=== PATIENT | female | born 1985 | race Caucasian/White ===

== ENCOUNTER 2018-06-11 16:42 | Emergency (ER) | payer MEDICAID ==
[~2018-06-11] VITALS: Ht 152.4 cm; Wt 88.1 kg
[2018-06-11] MEDS ORDERED: GABA600T7 PO (16:56)
[2018-06-11] MEDS ORDERED: DULO30CA2 PO (16:56)
[2018-06-11] MEDS ORDERED: CYCL-259 PO (16:56)
[2018-06-11] MEDS ORDERED: HYDR-3307 PO (16:56)
--- NOTE | 2018-06-11 17:00 | NUR ---
TASK RN: First contact with pt. Pt c/o, "insect bite on my left upper shoulder that I have had for a week. I have been cleaning it and keeping it covered, but it looks worse. I was going to go to my doctors today but my Jeep broke down." [place]. Pt presents to ED with open wound on left upper shoulder that is covered with quze and bandages. Wound has mild redness around edge, is moist, and has white slough in center.
[2018-06-11 17:28] VITALS: BP 131/89
== END 2018-06-11 17:31 | disposition home or self-care (01) ==
LOC: ED 17:20
DX: L03.114 Cellulitis of left upper limb (principal); Z87.891 Personal history of nicotine dependence
CPT/HCPCS: 99283

== ENCOUNTER 2020-03-06 16:25 | Emergency (ER) | payer MEDICAID ==
[~2020-03-06] VITALS: Ht 154.9 cm; Wt 86.6 kg
[~2020-03-06 16:25] MED LIST: CYCL-259 PO; DULO30CA2 PO; GABA600T7 PO; HYDR-3246 PO
--- NOTE | 2020-03-06 16:55 | NUR ---
REPORT RECEIVED FROM GAYATHRI HORNER. THIS IS A 34 YO F BIB EMS AND [facility] AFTER BEING FOUND INFRONT OF A PHARMACY BEHAVING ABNORMALLY. PT IN 4 POINT RESTRAINTS W/ SPIT HERNANDEZ PRESENT. PT WAS SEDATED W/ 5MG VERSED IM, 5MG HALDOL IM, 5MG VERSED IV AND 30MG KETAMINE IV MANAGER CAR. PT VSS, NADN. [facility] IN ROOM. UNKNOWN MEDICAL HX. AT BEDSIDE FOR ED EVAL.
[2020-03-06] MEDS ORDERED: ZIPRASIDONE 20 MG INJ IM ONE ×2 (17:08→17:30)
--- NOTE | 2020-03-06 17:22 | NUR ---
PT TRYING TO FREE SELF FROM RESTRAINTS, REMOVED NASAL CANNULA AND SPIT HERNANDEZ. PT VERBALLY AGGRESSIVE W/ STAFF. PT STATES "LET ME GO YOU FUCKING BITCH". PT MEDICATED PER EMAR. TRINIDAD HAMPTON.
[2020-03-06] MEDS ORDERED: SODIUM CHLORIDE 0.9% 1,000 ML IV ONE (17:30)
[2020-03-06] MEDS ORDERED: SODIUM CHLORIDE FLUSH 10ML SYR IVF ONE (17:30)
[2020-03-06] MEDS ORDERED: SODIUM CHLORIDE 0.9% 1,000ML IVBOLUS ONE (17:30)
[2020-03-06 17:34] LABS: HCG UR SG 1.014 (1.003-1.030); MICROSCOPIC NOT IND
--- NOTE | 2020-03-06 17:40 | NUR ---
LAB IN ROOM.
[2020-03-06 17:46] LABS: AMPHETAMINE SCREEN, URINE Negative (Negative); BARBITURATE SCREEN, URINE Negative (Negative); BENZODIAZEPINE SCREEN, URINE Positive (Negative); CANNABINOID SCREEN, URINE Positive (Negative); COCAINE SCREEN, URINE Negative (Negative); METHADONE SCREEN, URINE Negative (Negative); OPIATE SCREEN, URINE Negative (Negative)
[2020-03-06 17:54] LABS: BASOPHILS % (AUTO) 1 % (0-1); EOSINOPHILS % (AUTO) 1 % (1-7); LYMPHOCYTES % (AUTO) 40 % (22-44); MEAN CORPUSCULAR HEMOGLOBIN 25.8 pg (27.0-34.8); MEAN CORPUSCULAR HGB CONC 32.3 g/dL (32.4-35.8); MEAN PLATELET VOLUME 7.8 fL (7.4-10.4); MONOCYTES % (AUTO) 8 % (2-9); NEUTROPHILS % (AUTO) 51 % (42-75); PLATELET COUNT 320 x10^3/uL (130-400); RED BLOOD COUNT 4.36 x10^6/uL (3.82-5.3); RED CELL DISTRIBUTION WIDTH 19.2 % (9.6-15.2)
[2020-03-06 17:55] LABS: MD NO
[2020-03-06 18:07] LABS: ALANINE AMINOTRANSFERASE 18 U/L (12-78); ALBUMIN 3.1 g/dL (3.4-5.0); ANION GAP 6 mmol/L (5-15); CALCIUM 7.8 mg/dL (8.5-10.1); CHLORIDE 118 mmol/L (98-107); CREATININE 0.69 mg/dL (0.55-1.02)
[2020-03-06 18:09] LABS: ALKALINE PHOSPHATASE 71 U/L (45-117); BILIRUBIN,TOTAL 0.2 mg/dL (0.2-1.0); SALICYLATE LEVEL < 1.7 mg/dL (2.8-20.0); TOTAL PROTEIN 6.6 g/dL (6.4-8.2)
--- NOTE | 2020-03-06 18:11 | NUR ---
PT MORE CALM, ABLE TO PROPERLY VERBALIZE NEEDS. PT EDUCATED ON POC TO TRIAL DC 2 RESTRAINTS.
--- NOTE | 2020-03-06 18:23 | NUR ---
SECURITY CALLED TO REMOVE 2 RESTRAINTS.
--- NOTE | 2020-03-06 18:24 | NUR ---
2 RESTRAINTS REMOVED. PT STILL HAS LARM AND RLEG RESTRAINED. VSS, NADN. PT RESTING ON [employer] W/ LAW ENFORCEMENT AT BEDSIDE.
--- NOTE | 2020-03-06 18:50 | NUR ---
TELEPHONE CALL TO SECURITY TO REMOVE REMAINING RESTRAINTS.
--- NOTE | 2020-03-06 18:52 | NUR ---
REPORT GIVEN TO NOLA HORNER. PT RESTING ON GURNEY W/ CALL LIGHT IN REACH AND FAMILY AT BEDSIDE, RESP EVEN AND UNLABORED, KERONN. AWAITING LAB RESULTS.
--- NOTE | 2020-03-06 18:55 | NUR ---
RECEIVED REPORT, ASSUMED CARE OF A 34 YEAR OLD FEMALE TO ED FOR AGGRESSIVE BEHAVIOR. SHE WAS GIVEN MULTIPLE MEDICATIONS TO DEESCALATE HER BEHAVIOR. SHE CURRENTLY IS ASLEEP YET ROUSABLE. RESTAINTS WERE REMOVED. 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 THERE IS NO EVIDENCE OF POOR CIRCULATION OR COMPROMISE. VSS. SHE IS IN NO APPARENT DISTRESS.
--- NOTE | 2020-03-06 19:59 | NUR ---
PATIENT ASLEEP IN NO APPARENT DISTRESS. [facility] AT BEDSIDE.
--- NOTE | 2020-03-06 21:17 | NUR ---
PATIENT AMBULATED WITH A STEADY GAIT. ONLY COMPLAINT WAS CHRONIC BACK PAIN. PREPARING FOR D/C. VSS.
[2020-03-06 21:18] VITALS: BP 114/74
--- NOTE | 2020-03-06 21:32 | NUR ---
PATIENT AMBULATED OUT OF ER WITH A STEADY GAIT AND IN NO APPARENT DISTRESS. SHE LEFT W/O INCIDENT. PAPERWORK GIVEN TO RPVarun.
== END 2020-03-06 21:36 | disposition home or self-care (01) ==
LOC: ED 18:42
DX: F10.121 Alcohol abuse with intoxication delirium (principal); F10.151 Alcohol abuse with alcohol-induced psychotic disorder with hallucinations; F23 Brief psychotic disorder; F22 Delusional disorders; R00.0 Tachycardia, unspecified; R45.1 Restlessness and agitation; Y90.9 Presence of alcohol in blood, level not specified
CPT/HCPCS: 36415; 80053; 80307; 81003; 81025; 85025; 86705; 86706; 86803; 87340; 87806; 93005; 96360; 96361; 96372; 99285; J3486; J7030; G0475